=== PATIENT | male | born 1990 | race Caucasian/White ===

== ENCOUNTER 2024-03-24 14:32 | Outpatient (CLI) | payer BC, SELFPAY ==
--- NOTE | ~2024-03-24 | MR_ITS ---
EXAMINATION: MR shoulder RT wo/w con DATE: 03/24/2024 15:48 INDICATION: Right shoulder pain TECHNIQUE: Magnetic resonance imaging (MRI) of the right shoulder was performed without intravenous c ontrast. Sequences included axial PD-weighted FS FSE, coronal oblique PD-weighted FS FSE, coronal obl ique T2-weighted FS FSE, sagittal PD-weighted FS FSE, and sagittal T1-weighted SE. COMPARISON: None. FINDINGS: Coracoacromial arch: The acromion undersurface is curved in morphology (type II). The coracoacromial ligament is normal. M ild acromioclavicular osteoarthritis. Rotator cuff: Moderate supraspinatus and mild infraspinatus tendinopathy. There is a small full-thickness tear of t he posterior supraspinatus tendon contribution to the conjoined portion of the tendon. The tear defec t which is positioned just posterior to the apex of the humeral head prosthetic 2 cm from the greater tuberosity footplate and measuring 8 mm medial collateral and 4 mm AP. The teres minor the subscapul carmen tendons are normal. Normal rotator cuff muscle bulk and signal. Biceps tendon, glenoid labrum and glenohumeral cartilage: Long head of the biceps tendon is normal. There is a tear at the 4:00-5:30 position of the anteroinfe rior glenoid labrum. Glenohumeral cartilage is normal. Fluid: Small glenohumeral joint effusion with proportional extension of small amount of fluid in the long he ad biceps tendon sheath. There is also a small amount of fluid extending through the full-thickness r otator cuff tear into the subacromial subdeltoid bursa. No loose osteochondral bodies. Bones: There is marrow edema and enhancement at the lateral head of the clavicle. Thickening and prominent i ncreased signal and enhancement of the cephalad acromioclavicular joint capsule with lax appearance o f some of the fibers along the clavicular side of the ligament suggesting partial tear. There is sugg estion of a small flake-like cortical avulsion fracture along the posterior superior rim of the later al head of the clavicle. The coracoclavicular ligament is normal. Otherwise normal marrow signal. IMPRESSION: 1. Partial tear of the cephalad aspect of the coracoclavicular ligament with suggestion of a possible small flake-like avulsion fracture along its posterior superior clavicular insertion. 2. Moderate supraspinatus and mild infraspinatus tendinopathy with small full-thickness tear involvin g the supraspinatus contribution to the conjoined portion of the tendons. Line 3. Small tear at the anteroinferior glenoid labrum. Reviewed, dictated and finalized at location A. IMPRESSION: 1. Partial tear of the cephalad aspect of the coracoclavicular ligament with brooks ggestion of a possible small flake-like avulsion fracture along its posterior s uperior clavicular insertion. 2. Moderate supraspinatus and mild infraspinatus tendinopathy with small full-t hickness tear involving the supraspinatus contribution to the conjoined portion of the tendons. Line 3. Small tear at the anteroinferior glenoid labrum.
== END 2024-03-24 14:33 ==
LOC: MICIMG 14:35
DX: S43.81XA Sprain of other specified parts of right shoulder girdle, initial encounter (principal); M67.813 Other specified disorders of tendon, right shoulder; M75.111 Incomplete rotator cuff tear or rupture of right shoulder, not specified as traumatic; S43.431A Superior glenoid labrum lesion of right shoulder, initial encounter; X58.XXXA Exposure to other specified factors, initial encounter
CPT/HCPCS: 73223; A9577